=== PATIENT | female | born 1990 | race Caucasian/White ===

== ENCOUNTER 2020-06-24 01:15 | Emergency (ER) | payer MEDICAID, OTHER ==
[~2020-06-24] VITALS: Ht 160 cm; Wt 49.1 kg
[~2020-06-24 01:15] MED LIST: LAMO200T2 PO; OLAN5TAB3 PO; QUET-1 PO; QUET100T33 PO; QUET400T PO; QUET400T5 PO; TOPI200T PO; TOPI50TA PO
[2020-06-24] MEDS ORDERED: TETanus/Pertussis (Acell)/Diphther VAC/PF (Tdap-Adult) 0.5ml syringe IMVAC ONE (01:30)
[2020-06-24] MEDS ORDERED: LIDOcaine 1% W/epiNEPHrine 1:200,000 10ml vial IJ ONE (01:30)
[2020-06-24] MEDS ORDERED: LORazepam 2 mg/ml vial IM ONE ×2 (02:00→19:20)
[2020-06-24 02:04] LABS: URINE HCG NEGATIVE (NEG)
[2020-06-24 02:05] LABS: BASOPHILS % (AUTO) 0.2 % (0-1); EOSINOPHILS % (AUTO) 0.2 % (0-6); HEMATOCRIT 39.7 % (35.0-45.0); HEMOGLOBIN 13.5 g/dl (12.0-16.0); LYMPHOCYTES # (AUTO) 1.2 X10'3 (1.1-4.8); LYMPHOCYTES % (AUTO) 8.2 % (21-51); MEAN CORPUSCULAR HEMOGLOBIN 32.8 PG (27.0-31.0); MEAN CORPUSCULAR VOLUME 96.7 FL (78-98); MEAN PLATELET VOLUME 9.9 FL (7.4-10.4); MONOCYTES # (AUTO) 0.7 X10'3 (0-0.9); NEUTROPHILS # (AUTO) 12.5 X10'3 (1.8-7.7); NEUTROPHILS % (AUTO) 86.4 % (42-75); PLATELET COUNT 219 X10'3 (140-440); RED CELL DISTRIBUTION WIDTH 12.4 % (11.5-14.5); WHITE BLOOD COUNT 14.5 X10'3 (4.5-11.0)
[2020-06-24 02:12] LABS: CLARITY,URINE SLIGHTLY CLOUDY (Clear); COLOR,URINE YELLOW (Yellow); GLUCOSE, URINE NEGATIVE (Neg); KETONES,URINE NEGATIVE (Neg); LEUKOCYTE ESTERASE ,URINE NEGATIVE (Neg); NITRITES, URINE NEGATIVE (Neg); OCCULT BLOOD,URINE SMALL (Neg); PROTEIN,URINE 100 mg/dl (Neg); UROBILINOGEN,URINE 0.2 E.U/dL (0.2-1.0)
[2020-06-24 02:15] LABS: ALANINE AMINOTRANSFERASE 43 U/L (12-78); ALBUMIN 4.3 G/DL (3.4-5.0); ALBUMIN/GLOBULIN RATIO 1.2 (1.1-1.5); ALKALINE PHOSPHATASE 28 IU/L (46-116); ANION GAP 8 (8-16); ASPARTATE AMINO TRANSFERASE 44 U/L (10-37); BILIRUBIN,TOTAL 0.6 MG/DL (0.1-1.0); BLOOD UREA NITROGEN 13 MG/DL (7-18); BUN/CREATININE RATIO 13.7 (6.6-38.0); CHLORIDE 103 MMOL/L (99-107); CREATININE 0.95 MG/DL (0.40-0.90); GLUCOSE 90 MG/DL (70-104); POTASSIUM 3.4 MMOL/L (3.5-5.1); SODIUM 140 MMOL/L (135-145); TOTAL CARBON DIOXIDE 29.5 MMOL/L (24-32); TOTAL PROTEIN 7.9 G/DL (6.4-8.2); eGFR 69 ML/MIN
[2020-06-24 02:22] LABS: UA COLLECTION TYPE CLN CATCH MIDSTREAM; URINE AMPHETAMINE SCREEN NEGATIVE (Neg); URINE BARBITUATE SCREEN NEGATIVE (Neg); URINE BENZODIAZEPINES SCREEN NEGATIVE (Neg); URINE CANNABINOID SCREEN POSITIVE (Neg); URINE COCAINE SCREEN NEGATIVE (Neg); URINE METHADONE SCREEN NEGATIVE (Neg); URINE OPIATE SCREEN NEGATIVE (Neg); URINE PHENCYCLIDINE SCREEN NEGATIVE (Neg)
[2020-06-24 02:24] LABS: ETHANOL < 0.010 GM/DL (0.0-0.010)
[2020-06-24 02:28] LABS: BACTERIA,URINE 1+ /HPF (Neg); SQUAMOUS EPITHELIAL CELL,UR FEW /LPF (FEW); WBC,URINE 0-4 /HPF (0-4)
[2020-06-24 02:29] LABS: CELLULAR CAST 0-4 /LPF (NEGATIVE); FINE GRANULAR CAST 0-3 /LPF (NEGATIVE); MUCUS STRANDS FEW /LPF (Neg)
[2020-06-24 02:30] LABS: AMORPHOUS URATES 1+
--- NOTE | 2020-06-24 06:30 | NUR ---
PT GIVEN WATER TO DRINK ,PT TEARFUL SAID SHE WANT TO GO HOME WITH MY AND KIDS,PT INFORMED THAT SHE HAS TO BE EVALUATED BY THE [facility] FOR EVALUATION BY CHARGE NURSE SULEMAN,ROOM CLOSED.
--- NOTE | 2020-06-24 07:15 | NUR ---
SECURITY FOR STANDBY IN ER FOR THE PT, PT WANDERS AROUND AND STATED TO LEAVE THE UNIT SEVERAL TIME.
--- NOTE | 2020-06-24 07:28 | NUR ---
PT RSTING IN BED QUIETLY ,NO DISTRESS NOTED,SECURITY NEAR NURSES STATION TO KEEP AN EYE ON THE PT.
--- NOTE | 2020-06-24 08:43 | NUR ---
PT WENT TO RESTROOM CAME BACK TO ROOM WITHOUT NAY DISCOMFORT,WILL CONT TO MONITOR,PT WANT TO ESCAPE FROM THE UNIT,CHARGE NURSE IS KEEPING EYE ON PT WELL.
--- NOTE | 2020-06-24 09:09 | NUR ---
notified the dr siddiqi pt is more anixious and agitated as per md she will order meds after she finish up procedure with other pt.
[2020-06-24] MEDS ORDERED: LORazepam 1 MG tablet PO ONE (09:55)
--- NOTE | 2020-06-24 10:37 | NUR ---
pt medicated as per md orders,pt stated that the aivian doesn't look rgt showed the medication cover with dose ,generic name .pt said "yes thats the one i take".pt went to use restroom and now back to her room,pt scream in btw and then get tearful.
--- NOTE | 2020-06-24 12:00 | NUR ---
PT RESTING IN BED QUIETLY ,NO DISTRESS NOTED.WILL CONT TO MONITOR.RR EVEN AND NONLABORED.
--- NOTE | 2020-06-24 13:16 | NUR ---
PT WENT TO USE RESTROOM,PT PULLED THE CALL LIGHT CORD IN RESTROOM.VIVI CARUSO HAS INFORMED CHARGE NURSE SULEMAN,PT IS LOUD AND SCREAMING,DOOR CLOSED .WILL CONT TO MONITOR.
[2020-06-24] MEDS ORDERED: diphenhydrAMINE 50 mg/ml inj IM ONE (14:25)
[2020-06-24] MEDS ORDERED: haloperidol lactate 5mg/ml inj IM ONE (14:25)
--- NOTE | 2020-06-24 17:00 | NUR ---
pt appear sleeping at this time ,rr even and non labored ,will cont to monitor.
--- NOTE | 2020-06-24 18:30 | NUR ---
ASSUMED CARE OF PT RESTING IN BED WITH LIGHT ON AND BLANKETS OVER HER HEAD . RESP EVEN AND UNLABORED . UPDATED PLAN OF CAEW WITH PT WHO HAD POOR EYE CONTACT AND BEGAB YELLING " ITS NOT FAIR , I WANT TO GO HOME "
--- NOTE | 2020-06-24 18:45 | NUR ---
PT UP OUT OF BED TO BATHROOM . STEADY GAIT . PT WITH SITTER AT BEDIDE . PT IN THE DIRECT LINE OF SIGHT OF NURSING STAFF. DINNER TRAY OFFERD TO PATIENT .
--- NOTE | 2020-06-24 19:10 | NUR ---
PT YELLING AN DBANKING ON WALL . CHARGE NURSE TO BEDIDE AND DR LUBIN , PT VERY HOSTILE AND AGITATED , SCREAMING AND YELLING . PT REMIANED IN ROOM SECURITY AT BEDIDE DOOR AWAITING STANDBY NEEDED .PT WAS ABLE TO CALM HERSELF DOWN SLIGHTLY KNOWING SHE WOULD BE GIVEN SOME MEICATION TO HELP HER COPE .WILL CONTINUE TO MONITOR AND REASSESS
[2020-06-24] MEDS ORDERED: LORazepam 2 mg/ml vial ONE (19:19)
--- NOTE | 2020-06-24 19:23 | NUR ---
PT MEDICATED WITH 2MG ATIVAN IM TO RIGHT DELTOID
--- NOTE | 2020-06-24 19:26 | NUR ---
PATIENT BECAME TEARFUL, AGITATED, EXITED ROOM SCREAMING AT STAFF. ATTEMPTED TO CALM/REASURE PT, ORDERED OBTAINED FROM MD, MEDICATED, UTILIZED SECURIT TO HELP RETURN PT TO BED AND PROVIDED WARM BLANKET UPON EXITING ROOM,
--- NOTE | 2020-06-24 20:30 | NUR ---
PT SLEEPING ON HER LEFT SIDE RESP EVEN AND UNLABORED PT IN THE DIRECT LINE OF SIGHT OF NURSING STAFF . SITTER AT BEDSIDE
--- NOTE | 2020-06-24 21:19 | NUR ---
PT SLEEPING ON HER LEFT SIDE RESP EVEN AND UNLABORED PT IN THE DIRECT LINE OF SIGHT OF NURSING STAFF
--- NOTE | 2020-06-24 21:25 | NUR ---
REPORT CALLED OVER TO OF TO RYLEY MARTIN FOR PATIENT TO BE TRANSFERED OVER TO BED 20 .REPORTED THAT MED REC NEEDS TO BE COMPLETED . WAS REPORTED TO BY DAY SHIFT RN MANPRET THAT PACKET HAS BEEN PACKED
--- NOTE | 2020-06-24 21:30 | NUR ---
PT AMBULATED OVER TO OF ROOM 20 IN GREEN SCRUBS WITH TECH STEADY GAIT . SECURITY ALSO PRESENT . PT COROPORATIVE
--- NOTE | 2020-06-24 21:35 | NUR ---
RECEIVED REPORTFROM LAKIA. BIB [facility] FOUND DELUSIONAL AND PARANOID JUMPING OVER FENCES NUDE. RAMBLING. PT BI POLAR AND HASNT BEEN TAKING HER MEDS. LEFT FOOT WITH LACERATION, SUTURED. PACKAGE SENT TO [facility] AT 1700. TOX SCREEN POSITIVE FOR [facility]C.
[2020-06-25] MEDS ORDERED: LORazepam 1 MG tablet PO ONE (02:45)
[2020-06-25] MEDS ORDERED: diphenhydrAMINE 25mg capsule PO ONE (02:45)
[2020-06-25] MEDS ORDERED: haloperidol 5mg tablet PO ONE (02:45)
--- NOTE | 2020-06-25 02:57 | NUR ---
This patient awoke with anxiety and some agitation. Patient spoke in a loud voice, tangential speech, some confusion about surroundings. Dr. Abreu consulted. Patient given oral Benadryl, Ativan, and Haldol. Patient is compliant with taking med's. Patient was also given jello, ambika crackers, and fresh ice water. A warm blanket was also provided. This data analyst report writer is assisting patients primary nurse.
[2020-06-25 05:18] VITALS: BP 123/92
--- NOTE | 2020-06-25 06:30 | NUR ---
pt is sleeping. no concerns at this time
--- NOTE | 2020-06-25 07:26 | NUR ---
pt is sleeping. no concerns at this time
--- NOTE | 2020-06-25 08:30 | NUR ---
pt is calling her mom telling her to come pick her up
--- NOTE | 2020-06-25 09:30 | NUR ---
pt is sleeping
--- NOTE | 2020-06-25 10:30 | NUR ---
pt is sleeping. no concerns at this time
--- NOTE | 2020-06-25 11:58 | NUR ---
breaking primary nurse at this time,pt resting in bed quietly ,no distress noted.rr even and unlabored.
--- NOTE | 2020-06-25 12:00 | NUR ---
pt is resting in her room
--- NOTE | 2020-06-25 12:59 | NUR ---
pt is sleeping. no concerns at this time
== END 2020-06-25 15:55 ==
LOC: ER 01:15
DX: S91.312A Laceration without foreign body, left foot, initial encounter (principal); F29 Unspecified psychosis not due to a substance or known physiological condition; F31.9 Bipolar disorder, unspecified; F12.90 Cannabis use, unspecified, uncomplicated; Z91.040 Latex allergy status; Z88.8 Allergy status to other drugs, medicaments and biological substances; Z79.899 Other long term (current) drug therapy; W13.8XXA Fall from, out of or through other building or structure, initial encounter; Y93.89 Activity, other specified; Y92.89 Other specified places as the place of occurrence of the external cause; Y99.8 Other external cause status
CPT/HCPCS: 12002; 36415; 73630; 80053; 80305; 80320; 81001; 81025; 84443; 85025; 90471; 90715; 96372; 99285; J1200; J1630; J2060; Q0163

== ENCOUNTER 2023-01-27 18:17 | Emergency (ER) | payer OTHER ==
[~2023-01-27] VITALS: Ht 160 cm; Wt 47.7 kg
[~2023-01-27 18:17] MED LIST changes: +CLON1TAB96 PO; +DIAZ5TAB22 PO; +LAMO150T2 PO; -QUET100T33 PO; +QUET100T34 PO
[2023-01-27 20:04] LABS: MEAN CORPUSCULAR HGB CONC 34.3 g/dL (33.0-36.5); WHITE BLOOD COUNT 6.6 X10'3 (4.5-11.0)
[2023-01-27 20:06] LABS: BASOPHILS % (AUTO) 0.4 % (0-1); EOSINOPHILS # (AUTO) 0.1 X10'3 (0-0.9); EOSINOPHILS % (AUTO) 1.9 % (0-6); HEMATOCRIT 37.3 % (35.0-45.0); HEMOGLOBIN 12.8 g/dl (12.0-16.0); LYMPHOCYTES # (AUTO) 2.2 X10'3 (1.1-4.8); MEAN CORPUSCULAR HEMOGLOBIN 33.2 PG (27.0-31.0); MEAN CORPUSCULAR VOLUME 96.7 FL (78-98); MEAN PLATELET VOLUME 9.9 FL (7.4-10.4); MONOCYTES # (AUTO) 0.5 X10'3 (0-0.9); MONOCYTES % (AUTO) 7.1 % (2-12); NEUTROPHILS # (AUTO) 3.7 X10'3 (1.8-7.7); NEUTROPHILS % (AUTO) 56.6 % (42-75); PLATELET COUNT 154 X10'3 (140-440); RED BLOOD COUNT 3.85 X10'6 (4.20-5.60); RED CELL DISTRIBUTION WIDTH 12.6 % (11.5-14.5)
[2023-01-27 20:26] LABS: ALANINE AMINOTRANSFERASE 46 U/L (12-78); ALBUMIN/GLOBULIN RATIO 1.3 (1.1-1.5); ALKALINE PHOSPHATASE 37 IU/L (46-116); ASPARTATE AMINO TRANSFERASE 33 U/L (10-37); BILIRUBIN,TOTAL 0.6 MG/DL (0.1-1.0); BLOOD UREA NITROGEN 8 MG/DL (7-18); BUN/CREATININE RATIO 9.5 (10.0-20.0); CHLORIDE 103 MMOL/L (99-107); CREATININE 0.84 MG/DL (0.40-0.90); ETHANOL < 0.010 GM/DL (0.0-0.010); GLUCOSE 90 MG/DL (70-104); TOTAL CARBON DIOXIDE 28.4 MMOL/L (24-32); TOTAL PROTEIN 7.2 G/DL (6.4-8.2); eGFR 78 ML/MIN
[2023-01-27 20:41] LABS: ANION GAP 9 (8-16); CALCIUM 8.8 MG/DL (8.5-10.1); SODIUM 140 MMOL/L (135-145)
--- NOTE | 2023-01-27 20:43 | NUR ---
Critical lab received: Potassium 3.0. Reported to ALEXEY Willoughby @ 2043.
[2023-01-27 20:44] LABS: ACETAMINOPHEN < 2.0 UG/ML (10-30)
[2023-01-27] MEDS ORDERED: potassium Cl 40MEQ/1/2NS 520ml 520 ML IV ONE (20:45)
--- NOTE | 2023-01-27 20:55 | NUR ---
Pharmacy called at this time to request ordered potassium
[2023-01-27 20:56] LABS: URINE HCG NEGATIVE (NEG)
[2023-01-27 21:08] LABS: CLARITY,URINE SLIGHTLY CLOUDY (Clear); GLUCOSE, URINE NEGATIVE (Neg); KETONES,URINE >=80 mg/dl (Neg); LEUKOCYTE ESTERASE ,URINE NEGATIVE (Neg); NITRITES, URINE NEGATIVE (Neg); OCCULT BLOOD,URINE TRACE-INTACT (Neg); PROTEIN,URINE NEGATIVE (Neg); UROBILINOGEN,URINE 0.2 E.U/dL (0.2-1.0)
[2023-01-27 21:09] LABS: COLOR,URINE DARK YELLOW (Yellow); UA COLLECTION TYPE CLN CATCH MIDSTREAM
[2023-01-27 21:14] LABS: BACTERIA,URINE 1+ /HPF (Neg); MUCUS STRANDS FEW /LPF (Neg); RBC,URINE 0-2 /HPF (0-2); SQUAMOUS EPITHELIAL CELL,UR MANY /LPF (FEW); WBC,URINE 0-4 /HPF (0-4)
[2023-01-27 21:15] LABS: URINE AMPHETAMINE SCREEN NEGATIVE (Neg); URINE BARBITUATE SCREEN NEGATIVE (Neg); URINE BENZODIAZEPINES SCREEN POSITIVE (Neg); URINE CANNABINOID SCREEN POSITIVE (Neg); URINE COCAINE SCREEN NEGATIVE (Neg); URINE METHADONE SCREEN NEGATIVE (Neg); URINE OPIATE SCREEN NEGATIVE (Neg); URINE PHENCYCLIDINE SCREEN NEGATIVE (Neg)
[2023-01-27] MEDS ORDERED: potassium Cl 20 mEq SR tablet PO ONE (21:55)
[2023-01-27 22:44] VITALS: BP 128/76
[2023-01-29] MEDS ORDERED: DIAZ10TA4 PO (16:57)
[2023-01-29] MEDS ORDERED: LAMO150T6 PO (16:57)
[2023-01-29] MEDS ORDERED: CLON1TAB13 PO (16:57)
[2023-01-30] MEDS ORDERED: HALO5TAB PO (15:26)
[2023-01-31] MEDS ORDERED: QUET400T PO (08:33)
[2023-01-31] MEDS ORDERED: HALO5TAB PO (08:33)
== END 2023-01-27 22:48 | disposition home or self-care (01) ==
LOC: ER 18:18 → MERGE 18:18 → ER 22:48
DX: R41.82 Altered mental status, unspecified (principal); E87.6 Hypokalemia; R41.0 Disorientation, unspecified; F31.9 Bipolar disorder, unspecified; Z79.899 Other long term (current) drug therapy; Z91.040 Latex allergy status; Z88.8 Allergy status to other drugs, medicaments and biological substances
CPT/HCPCS: 36415; 71045; 80053; 80305; 80320; 80329; 81001; 81025; 82140; 82948; 84484; 85025; 93005; 96365; 99285; J3480